=== PATIENT | female | born 1995 | race Two or more races ===

== ENCOUNTER 2018-10-21 19:12 | Emergency (ER) | payer SELFPAY ==
[~2018-10-21] VITALS: Ht 162.6 cm; Wt 55.0 kg
[2018-10-22] MEDS ORDERED: SODIUM CHLORIDE 0.9% 1,000 ML IV ONE (03:02)
[2018-10-22 03:17] LABS: CLARITY URINE CLEAR (CLEAR); COLOR URINE YELLOW (YELLOW); KETONES URINE TRACE (NEGATIVE); LEUKOCYTE ESTERASE URINE NEGATIVE (NEGATIVE); NITRITE URINE NEGATIVE (NEGATIVE); OCCULT BLOOD URINE NEGATIVE (NEGATIVE); PROTEIN URINE NEGATIVE (NEGATIVE); UROBILINOGEN URINE 0.2 E.U./dL (0.2-1.0)
[2018-10-22 03:54] LABS: BASOPHILS % 0.7 % (0.0-2.0); EOSINOPHILS % 1.9 % (0.0-5.0); HEMATOCRIT. 37.1 % (36.0-48.0); HEMOGLOBIN. 12.5 g/dL (12.0-16.0); LYMPHOCYTES % 25.5 % (20.0-50.0); MEAN CORPUSCULAR HEMOGLOBIN 31.6 pg (28.0-32.0); MEAN CORPUSCULAR VOLUME 93.9 fL (81.0-99.0); MEAN PLATELET VOLUME 8.3 fl (7.4-10.4); MONOCYTES % 4.9 % (2.0-8.0); PLATELET 303 x1000/uL (130-400); RED BLOOD CELL COUNT 3.95 mill/uL (4.2-5.4); RED CELL DISTRIBUTION WIDTH 12.5 % (11.6-14.6)
[2018-10-22 04:01] LABS: CHLORIDE 104 mEq/L (98-107)
[2018-10-22 04:22] LABS: B-HCG QUANTITATIVE 69552 mIU/mL (<3)
[2018-10-22] MEDS ORDERED: ACETAMINOPHEN 500MG TABLET PO ONE (04:45)
[2018-10-22 05:03] VITALS: BP 102/58
== END 2018-10-22 05:09 | disposition home or self-care (01) ==
LOC: ER 19:12
DX: O26.891 Other specified pregnancy related conditions, first trimester (principal); Z3A.10 10 weeks gestation of pregnancy; O20.0 Threatened abortion; R51 Headache
CPT/HCPCS: 36415; 76801; 76817; 80053; 81003; 81025; 84702; 85025; 99284; J7030

== ENCOUNTER 2018-12-26 23:49 | Observation (INO) | payer MEDICAID ==
[~2018-12-26] VITALS: Ht 157.5 cm; Wt 63.5 kg
[2018-12-27] MEDS ORDERED: LACTATED RINGERS 1,000 ML IV SCH ×2 (01:30)
[2018-12-27] MEDS ORDERED: ACETAMINOPHEN 500MG TABLET PO PRN (01:30)
[2018-12-27] MEDS ORDERED: ONDANSETRON HCL 4MG/2ML INJ IV PRN (01:30)
[2018-12-27 02:30] LABS: CHLORIDE 108 mEq/L (98-107)
[2018-12-27 03:06] LABS: CLARITY URINE CLEAR (CLEAR); COLOR URINE YELLOW (YELLOW); KETONES URINE NEGATIVE (NEGATIVE); LEUKOCYTE ESTERASE URINE NEGATIVE (NEGATIVE); NITRITE URINE NEGATIVE (NEGATIVE); OCCULT BLOOD URINE 1+ (NEGATIVE); PROTEIN URINE NEGATIVE (NEGATIVE); SPECIFIC GRAVITY URINE 1.004 (1.005-1.030); UROBILINOGEN URINE 0.2 E.U./dL (0.2-1.0)
[2018-12-27 03:07] LABS: HEMATOCRIT 34.8 % (36.0-48.0); HEMOGLOBIN 11.9 g/dL (12.0-16.0); MEAN CORPUSCULAR HEMOGLOBIN 32.7 pg (28.0-32.0); MEAN CORPUSCULAR VOLUME 95.9 fL (81.0-99.0); PLATELET 244 x1000/uL (130-400); RED BLOOD CELL COUNT 3.63 mill/uL (4.2-5.4); RED CELL DISTRIBUTION WIDTH 13.8 % (11.6-14.6)
[2018-12-27] MEDS ORDERED: PREN1TAB78 MT (03:45)
== END 2018-12-27 03:50 | disposition home or self-care (01) ==
LOC: ER 23:49 → 8 EST LDRP 12-27 00:06 → UNDOADMOB 12-27 00:06 → UNDODISOB 12-27 03:50
PROVIDERS: ADMIT Obstetrics & Gynecology; ATTEND Obstetrics & Gynecology
DX: O26.892 Other specified pregnancy related conditions, second trimester (principal); G43.909 Migraine, unspecified, not intractable, without status migrainosus; R10.30 Lower abdominal pain, unspecified; R42 Dizziness and giddiness; O46.93 Antepartum hemorrhage, unspecified, third trimester; O99.89 Other specified diseases and conditions complicating pregnancy, childbirth and the puerperium; M54.9 Dorsalgia, unspecified; Z3A.20 20 weeks gestation of pregnancy
CPT/HCPCS: 36415; 80053; 81003; 85027; 96361; 96374; 99281; G0378; J2405; 96360; 99283; 99285

== ENCOUNTER 2019-01-12 13:29 | Observation (INO) | payer MEDICAID ==
[~2019-01-12] VITALS: Ht 154.9 cm; Wt 63.5 kg
[~2019-01-12 13:29] MED LIST: PREN1TAB78 MT
[2019-01-12] MEDS ORDERED: SODIUM CHLORIDE 0.9% 100 ML IV SCH (15:15)
[2019-01-12 15:56] LABS: CHLORIDE 108 mEq/L (98-107)
== END 2019-01-12 16:40 | disposition home or self-care (01) ==
LOC: 8 EST LDRP 13:29
PROVIDERS: ADMIT Specialist; ATTEND Specialist
DX: O26.892 Other specified pregnancy related conditions, second trimester (principal); R42 Dizziness and giddiness; Z3A.22 22 weeks gestation of pregnancy
CPT/HCPCS: 36415; 80051; 82565; 84520; G0378; 99281